=== PATIENT | male | born 1985 | race Caucasian/White ===

== ENCOUNTER 2019-01-12 17:10 | Emergency (ER) | payer OTHER ==
[2019-01-12 17:28] VITALS: BP 142/85; PULSE 42; TEMP 97.2; BMI 27.1
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
[2019-01-12] MEDS ORDERED: morphine CARPU-JECT 4 MG/1 ML DISP.SYRIN IVPUSH ONE (17:46)
[2019-01-12] MEDS ORDERED: morphine SULFATE 4 MG/ML VIAL ONE (17:48)
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
[2019-01-12 18:28] LABS: BASO % 0.8 % (0-2.0); EOS % 8.1 % (0-4.5); HEMATOCRIT 42.3 % (35.4-49); HEMOGLOBIN 13.7 GM/dL (11.7-16.9); LYMPH % 40.9 % (8-40); MCH 27.1 pg (25.7-33.7); MCHC 32.5 g/dl (32.0-35.9); MEAN CELL VOLUME 83.4 fl (80-96); MEAN PLT VOLUME 7.9 fl (7.5-11.1); MONO % 9.2 % (3.8-10.2); PLATELET COUNT 183 K/MM3 (134-434); RBC 5.07 M/mm3 (4.00-5.60); RDW 13.2 % (11.9-15.9); WHITE BLOOD COUNT 4.3 K/mm3 (4.0-10.0)
[2019-01-12 18:39] LABS: ALBUMIN 3.8 g/dl (3.4-5.0); BILIRUBIN,TOTAL 0.5 mg/dL (0.2-1); BLOOD UREA NITROGEN 14.5 mg/dL (7-18); CALCIUM 8.9 mg/dL (8.5-10.1); CREATININE 0.9 mg/dL (0.55-1.3); INR 1.12 (0.83-1.09); POTASSIUM 3.8 mmol/L (3.5-5.1); PROTHROMBIN TIME (PATIENT) 13.2 SEC (9.7-13.0); TOT PROT 6.8 g/dl (6.4-8.2)
[2019-01-12 18:42] LABS: ACTIVATED PTT 34.9 SECONDS (25.2-36.5)
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
[2019-01-12] MEDS ORDERED: IBUPROFEN 600 MG TABLET (FP) PO ONE ×2 (20:01→20:02)
[2019-01-12] MEDS ORDERED: METHOCARBAMOL 500 MG TABLET PO ONE (20:01)
[2019-01-12] MEDS ORDERED: METHOCARBAMOL 500 MG TABLET ONE (20:02)
== END 2019-01-12 20:10 | disposition home or self-care (01) ==
LOC: JER 17:10
PROC: 3E033NZ Introduction of Analgesics, Hypnotics, Sedatives into Peripheral Vein, Percutaneous Approach (ICD-10-PCS; principal; 2019-01-12)
DX: M54.2 Cervicalgia (principal); V43.52XA Car driver injured in collision with other type car in traffic accident, initial encounter; Y93.89 Activity, other specified; Y92.410 Unspecified street and highway as the place of occurrence of the external cause; F17.210 Nicotine dependence, cigarettes, uncomplicated
CPT/HCPCS: 36415; 70450-TC; 72125-TC; 80053; 85025; 85610; 85730; 86850; 86900; 86901; 99281-25